=== PATIENT | female | born 1985 | race African-American/Black ===

== ENCOUNTER 2016-03-03 15:01 | Inpatient (IN) | payer OTHER ==
[2016-03-03 16:42] VITALS: BMI 40.1
--- NOTE | 2016-03-03 17:42 | HP ---
CIWA Score - CIWA Score Nausea/Vomitin Muscle Tremors: 3 Anxiety: 3 Agitation: 3 Paroxysmal Sweats: 2 Orientation: 0-Oriented Tacttile Disturbances: 2-Mild Itch/Numbness/Burn Auditory Disturbances: 2-Mild Harshness/Frighten Visual Disturbances: 2-Mild Sensitivity Headache: 2-Mild CIWA-Ar Total Score: 22 Admission ROS BHS - HPI Chief Complaint: I NEED HELP TO STOP DRINKING ALCOHOL ND COCAINE Allergies/Adverse Reactions: Allergies Allergy/AdvReac Type Severity Reaction Status Date / Time diphenhydramine HCl Allergy Hives Verified 03/03/16 18:01 [From Benadryl] History of Present Illness: THIS 30 YEARS OLD FEMALE WITH ALCOHOL AND COCAINE DEPENDENCE,WITHDRAWAL SYMPTOM, LAST DETOX 01/26/16 TO 01/28/16 ASTHMA ALLERGIC TO BENADRYL RASH STATED TAKING BENADRYL WITHOUT PROBLEM NICOTINE DEPENDENCE NO SIGNIFICANT PERIOD OF SOBRIETY Exam Limitations: No Limitations - Ebola screening Have you traveled outside of the country in the last 21 days: No (N) Have you had contact with anyone from an Ebola affected area: No Have you been sick,other than usual withdrawal symptoms: No Do you have a fever: No - Review of Systems Constitutional: Loss of Appetite, Malaise, Night Sweats, Changes in sleep, Weakness EENT: reports: Nose Congestion Respiratory: reports: No Symptoms reported Cardiac: reports: No Symptoms Reported GI: reports: Diarrhea, Nausea, Vomiting, Abdominal cramping : reports: No Symptoms Reported Musculoskeletal: reports: Back Pain, Muscle Pain Integumentary: reports: Dryness Neuro: reports: Headache, Tremors Endocrine: reports: No Symptoms Reported Hematology: reports: No Symptoms Reported Psychiatric: reports: Anxious, Depressed, other (BIPOLAR DISORDER PTSD) Patient History - Patient Medical History Hx Anemia: No Hx Asthma: Yes (ON ALBUTEROL) Hx Chronic Obstructive Pulmonary Disease (COPD): No Hx Cancer: No Hx Cardiac Disorders: No Hx Hypertension: No Hx Hypercholesterolemia: No Hx Pacemaker: No HX Cerebrovascular Accident: No Hx Seizures: No Hx Dementia: No Hx Diabetes: No Hx Gastrointestinal Disorders: No Hx Liver Disease: No Hx Genitourinary Disorders: No Hx Sexually Transmitted Disorders: No Hx Renal Disease (ESRD): No Hx Thyroid Disease: No Hx Human Immunodeficiency Virus (HIV): No (LAST 10/15 NEGATIVE) Hx Hepatitis C: No Hx Depression: Yes (hospitalized in december 2015 bx [place]) Hx Suicide Attempt: Yes (last time 15 years ago OVERDOSE) Hx Schizophrenia: No Other Medical History: NO SUICIDAL,NO HOMICIDAL - Patient Surgical History Past Surgical History: No - PPD History Previous Implant?: Yes Date: 01/28/16 Results: NO READING PPD to be Administered?: Yes - Reproductive History Patient is a Female of Child Bearing Age (11 -55 yrs old): Yes Last Menstrual Period: 03/01/16 Patient : No - Smoking Cessation Smoking history: Current every day smoker Have you smoked in the past 12 months: Yes Aproximately how many cigarettes per day: 20 Hx Chewing Tobacco Use: No Initiated information on smoking cessation: Yes 'Breaking Loose' booklet given: 03/03/16 - Substance & Tx. History Hx Alcohol Use: Yes Hx Substance Use: Yes Substance Use Type: Alcohol, Cocaine Hx Substance Use Treatment: Yes ([facility] 01/26/16 TO 01/28/16) - Substances Abused Alcohol Route: Oral Frequency: Daily Amount used: 4PINTS OF YULIYA/12 OF 12 OZS OF BEER Age of first use: 14 Date of Last Use: 03/02/16 Cocaine Route: Inhalation Frequency: 1-2 times per week Amount used: 20$ Age of first use: 21 Date of Last Use: 03/02/16 Family Disease History - Family Disease History Family Disease History: Diabetes: Grandparent (), Father (hx etoh), Mother, Heart Disease: Mother, CA: Grandparent Admission Physical Exam BHS - Vital Signs Vital Signs: Vital Signs - 24 hr 03/03/16 16:40 Temperature 98.2 F Pulse Rate 72 Respiratory 20 Rate Blood Pressure 104/73 - Physical General Appearance: Yes: Moderate Distress, Irritable, Sweating, Anxious HEENTM: Yes: Nasal Congestion Respiratory: Yes: Lungs Clear Neck: Yes: Within Normal Limits Breast: Yes: Within Normal Limits Cardiology: Yes: Within Normal Limits, Regular Rhythm, Regular Rate, S1, S2 Abdominal: Yes: Normal Bowel Sounds, Non Tender, Soft Genitourinary: Yes: Within Normal Limits Back: Yes: Muscle Spasm Musculoskeletal: Yes: Back pain, Muscle Pain Extremities: Yes: Tremors Neurological: Yes: humanities division chair II-XII NML intact, Fully Oriented, Alert, Motor Strength 5/5 Integumentary: Yes: Dry Lymphatic: Yes: Within Normal Limits - Diagnostic (1) Alcohol dependence with uncomplicated withdrawal Current Visit: Yes Status: Acute (2) Cocaine dependence Current Visit: Yes Status: Acute Qualifiers: Substance use status: uncomplicated Qualified Code(s): F14.20 - Cocaine dependence, uncomplicated (3) Nicotine dependence Current Visit: Yes Status: Acute Qualifiers: Nicotine product type: cigarettes Substance use status: uncomplicated Qualified Code(s): F17.210 - Nicotine dependence, cigarettes, uncomplicated (4) Bipolar disorder Current Visit: Yes Status: Chronic Comment: By history (self-report). (5) Insomnia Current Visit: Yes Status: Chronic (6) PTSD (post-traumatic stress disorder) Current Visit: Yes Status: Acute Cleared for Admission S - Detox or Rehab [facility] Level of Care: Medically Managed Detox Regimen/Protocol: Librium S Breath Alcohol Content Breath Alcohol Content: 0 Urine Drug Screen - Results Drug Screen Negative: No Urine Drug Screen Results: KOSTA-Cocaine
[2016-03-03] MEDS ORDERED: MAGNESIUM CITRATE 300 ML BOTTLE PO PRN (17:53)
[2016-03-03] MEDS ORDERED: MENTHOL/PHENOL 1 EACH UD MM PRN (17:53)
[2016-03-03] MEDS ORDERED: ACETAMINOPHEN 325 MG TABLET (FP) PO PRN (17:53)
[2016-03-03] MEDS ORDERED: hydrOXYzine PAMOATE 25 MG CAPSULE (FP) PO PRN (17:53)
[2016-03-03] MEDS ORDERED: P-EPHED 60MG/TRIPROLIDI 2.5MG TABLET PO PRN (17:53)
[2016-03-03] MEDS ORDERED: MAG HYDROX/AL HYDROX/SIMETH 30 ML UNIT-DOSE CUP PO PRN (17:53)
[2016-03-03] MEDS ORDERED: guaiFENesin/D-METHORPHAN HB 10 ML UNIT-DOSE CUPS PO PRN (17:53)
[2016-03-03] MEDS ORDERED: IBUPROFEN 400 MG TABLET (FP) PO PRN (17:53)
[2016-03-03] MEDS ORDERED: LOPERAMIDE HCL 2 MG CAPSULE PO PRN (17:53)
[2016-03-03] MEDS ORDERED: chlordiazePOXIDE HCL 25 MG CAPSULE PO PRN (17:53)
[2016-03-03] MEDS ORDERED: MAGNESIUM HYDROX 2400MG/30ML ORAL SUSPENSION 30 ML CUP PO PRN (17:53)
[2016-03-03] MEDS: NICOTINE 21 MG/24 HOURS TOPICAL PATCH TD SCH (18:28)
[2016-03-03] MEDS ORDERED: chlordiazePOXIDE HCL 25 MG CAPSULE PO ONE (18:30)
[2016-03-03] MEDS: hydrOXYzine PAMOATE 50 MG CAPSULE (FP) PO SCH (22:24)
[2016-03-03] MEDS: THIAMINE HCL 100 MG TABLET (FP) PO SCH (22:24)
[2016-03-03] MEDS: chlordiazePOXIDE HCL 25 MG CAPSULE PO SCH (22:24)
[2016-03-04] MEDS: chlordiazePOXIDE HCL 25 MG CAPSULE PO SCH ×4 (06:27→22:19)
--- NOTE | 2016-03-04 10:06 | CONSULT ---
[facility] Psychiatric Consult - Data Date of interview: 03/04/16 Admission source: [facility] Identifying data: Readmission to [facility] for this 30 y/o AA female seeking detox treatment on for alcohol and cocaine (crack) dependence.Patient is single without children,undomiciled,unemployed and reportedly deprived of any source of income.. Substance Abuse History: - Smoking Cessation. Smoking history: Former smoker. Have you smoked in the past 12 months: No. Aproximately how many cigarettes per day: 0. Hx Chewing Tobacco Use: No. Initiated information on smoking cessation: Yes. 'Breaking Loose' booklet given: 03/03/16. - Substance & Tx. History. Hx Alcohol Use: Yes. Hx Substance Use: No. Substance Use Type: Alcohol. Hx Substance Use Treatment: Yes ([facility] 03/20/15 TO 03/25/15). - Substances Abused. Alcohol. Route: Oral. Frequency: Daily. Amount used: 1 1/2 pint Vodka. Age of first use: 50. Date of Last Use: 03/03/16 Medical History: Patient denies medical problems. Psychiatric History: History of multiple psychiatric hospitalizations.Onset of mental illness :age [age].Patient is well known to [facility] due to numerous psychiatric admissions at that location.Diagnosed with Bipolar Disorder.OPD care is now delivered at [facility].Ms Zavala reports being on seroquel 200 mg/hs + gabapentin 300 mg/600 mg (am/hs respectively).Patient reports chronic insomnia.No history of suicide attempts. Physical/Sexual Abuse/Trauma History: No reported history of sexual abuse. Additional Comment: Urine Drug Screen Results: KOSTA-Cocaine.Noted. Mental Status Exam - Mental Status Exam Alert and Oriented to: Time, Place, Person Cognitive Function: Good Patient Appearance: Well Groomed (obese) Mood: Angry, Hostile, Irritable Affect: Inappropriate, Mood Congruent Patient Behavior: Uncooperative, Guarded Speech Pattern: Clear Voice Loudness: Normal Thought Process: Goal Oriented Thought Disorder: Bizarre Hallucinations: Denies Suicidal Ideation: Denies Homicidal Ideation: Denies Insight/Judgement: Poor Sleep: Poorly, Difficulty falling asleep Appetite: Good Muscle strength/Tone: Normal Gait/Station: Normal Psychiatric Findings - Problem List ([place] 1, 2,3) (1) Alcohol dependence with uncomplicated withdrawal Current Visit: Yes Status: Acute (2) Cocaine dependence Current Visit: Yes Status: Acute Qualifiers: Substance use status: uncomplicated Qualified Code(s): F14.20 - Cocaine dependence, uncomplicated (3) Nicotine dependence Current Visit: Yes Status: Acute Qualifiers: Nicotine product type: cigarettes Substance use status: uncomplicated Qualified Code(s): F17.210 - Nicotine dependence, cigarettes, uncomplicated (4) Bipolar disorder Current Visit: Yes Status: Chronic Comment: By history (self-report). (5) Insomnia Current Visit: Yes Status: Chronic - Initial Treatment Plan Initial Treatment Plan: Psychoeducation.Detoxification.Medications :gabapentin 300 mg po am + 600 mg po hs and seroquel 200 mg po hs at own request.Side effects/benefits discussed with patient.She agree with this plan.Observation.
[2016-03-04] MEDS: PRENATAL VITAMINS W/ FOLIC ACID TABLET (FP) PO SCH (10:26)
[2016-03-04] MEDS: NICOTINE 21 MG/24 HOURS TOPICAL PATCH TD SCH (10:27)
[2016-03-04 11:02] LABS: MCHC 32.9 g/dl (32.0-36.0); MEAN PLT VOLUME 9.1 fl (7.5-11.1); PLATELET COUNT 315 K/MM3 (134-434); RDW 14.9 % (11.6-15.6); WHITE BLOOD COUNT 8.3 K/mm3 (4.0-10.0)
--- NOTE | 2016-03-04 11:10 | PN ---
S CIWA - CIWA Score Nausea/Vomitin Muscle Tremors: 2 Anxiety: 3 Agitation: 4-Moderately Restless Paroxysmal Sweats: 3 Orientation: 0-Oriented Tacttile Disturbances: 1-Very Mild Itch/Numbness Auditory Disturbances: 0-None Visual Disturbances: 0-None Headache: 0-None Present CIWA-Ar Total Score: 15 BHS Progress Note (SOAP) Subjective: INTERRUPTED SLEEP, IRRITABILITY, Objective: 03/04/16 11:08 Vital Signs Temperature 97.9 F 03/04/16 10:28 Pulse Rate 75 03/04/16 10:28 Respiratory Rate 20 03/04/16 10:28 Blood Pressure 110/68 03/04/16 10:28 O2 Sat by Pulse Oximetry (%) Laboratory Tests 03/04/16 06:30 WBC 8.3 RBC 4.43 Hgb 12.8 Hct 39.0 MCV 88.0 MCHC 32.9 RDW 14.9 Plt Count 315 MPV 9.1 PENDING LABS PT AOX3 ANGRY, RESISTANT TO HAVING VS DONE Assessment: 03/04/16 11:09 WITHDRAWL SX;S Plan: CONT. DETOX INCREASE FLUIDS ENCOUARGE PT TO PARTICIPATE IN [facility] RULE S
[2016-03-04 11:29] LABS: ALK PHOS 70 U/L (45-117); ANION GAP 5 (8-16); BILIRUBIN,TOTAL 0.2 mg/dL (0.2-1.0); CALCIUM 8.8 mg/dL (8.5-10.1); CO2 30 mmol/L (21-32); CREATININE 0.8 mg/dL (0.55-1.02); GLUCOSE,RANDOM 86 mg/dL (74-106); SGOT/AST 17 U/L (15-37); SGPT/ALT 25 U/L (12-78)
[2016-03-04] MEDS: GABAPENTIN 300 MG CAPSULE (FP) PO SCH ×2 (11:55→22:25)
[2016-03-04] MEDS: THIAMINE HCL 100 MG TABLET (FP) PO SCH (22:20)
[2016-03-04] MEDS: QUEtiapine FUMARATE 200 MG TABLET PO SCH (22:20)
[2016-03-04] MEDS: hydrOXYzine PAMOATE 50 MG CAPSULE (FP) PO SCH (22:20)
[2016-03-05] MEDS: chlordiazePOXIDE HCL 25 MG CAPSULE PO SCH ×3 (05:50→17:30)
[2016-03-05] MEDS: PRENATAL VITAMINS W/ FOLIC ACID TABLET (FP) PO SCH (10:31)
[2016-03-05] MEDS: GABAPENTIN 300 MG CAPSULE (FP) PO SCH ×2 (10:32→22:07)
[2016-03-05] MEDS: NICOTINE 21 MG/24 HOURS TOPICAL PATCH TD SCH (10:32)
--- NOTE | 2016-03-05 10:45 | PN ---
[facility] CIWA - CIWA Score Nausea/Vomitin-No Nausea/No Vomiting Muscle Tremors: 3 Anxiety: 4-Mod. Anxious/Guarded Agitation: 3 Paroxysmal Sweats: 1-Minimal Palms Moist Orientation: 0-Oriented Tacttile Disturbances: 0-None Auditory Disturbances: 0-None Visual Disturbances: 0-None Headache: 0-None Present CIWA-Ar Total Score: 11 BHS Progress Note (SOAP) Subjective: irritable agitation Objective: 03/05/16 10:49 Vital Signs Temperature 98.4 F 03/05/16 06:28 Pulse Rate 97 H 03/05/16 06:28 Respiratory Rate 20 03/05/16 06:28 Blood Pressure 105/62 03/05/16 06:28 O2 Sat by Pulse Oximetry (%) Laboratory Tests 03/04/16 03/04/16 03/04/16 06:30 06:30 06:30 WBC 8.3 RBC 4.43 Hgb 12.8 Hct 39.0 MCV 88.0 MCHC 32.9 RDW 14.9 Plt Count 315 MPV 9.1 Sodium 142 Potassium 4.2 Chloride 107 Carbon Dioxide 30 Anion Gap 5 L BUN 12 Creatinine 0.8 Creat Clearance w eGFR > 60 Random Glucose 86 D Calcium 8.8 Total Bilirubin 0.2 AST 17 D ALT 25 D Alkaline Phosphatase 70 Total Protein 6.0 L Albumin 3.0 L RPR Titer Nonreactive awake/alert ambulating very angry "I don't want to be here for detox I need to be left alone." Assessment: 03/05/16 10:50 mild withdrawal sx Plan: pt was encouraged to abide by unit rules. MD and counselor was involved in speaking with pt to advise her of controlling her behaviour and follow unit rules. pt has been very abrasive, unruly, uncooperative, insulting to staff. pt was told this behaviour need to stop. pt states she will change. will continue to monitor. d/c in am
[2016-03-05] MEDS: QUEtiapine FUMARATE 200 MG TABLET PO SCH (22:07)
[2016-03-05] MEDS: hydrOXYzine PAMOATE 50 MG CAPSULE (FP) PO SCH (22:07)
[2016-03-05] MEDS: chlordiazePOXIDE 5 MG CAPSULE PO SCH (22:08)
[2016-03-05] MEDS: THIAMINE HCL 100 MG TABLET (FP) PO SCH (22:11)
[2016-03-06] MEDS: chlordiazePOXIDE 5 MG CAPSULE PO SCH (05:33)
[2016-03-06] MEDS: GABAPENTIN 300 MG CAPSULE (FP) PO SCH (09:05)
[2016-03-06] MEDS: PRENATAL VITAMINS W/ FOLIC ACID TABLET (FP) PO SCH (09:05)
--- NOTE | 2016-03-06 09:18 | DS ---
[facility] Detox Discharge Summary Admission Date: 03/03/16 Discharge Date: 03/06/16 - History Present History: Alcohol Dependence, Cocaine Dependence Additional Comments: pt has been disruptive x 3 days . She has cursed out the entire staff on 6n including pyschiatrist and POLICE CRIME SCENE TECHNICIAN. The pt does not follow instructions or unit policies . Refused meds and is not changing her behavior despite multiple attempts by multiple staff members who have spoken to her . Security called and pt escorted off unit. - Physical Exam Results Vital Signs: Vital Signs Temperature 97.3 F L 03/06/16 06:53 Pulse Rate 86 03/06/16 06:53 Respiratory Rate 18 03/06/16 06:53 Blood Pressure 112/70 03/06/16 06:53 O2 Sat by Pulse Oximetry (%) - Treatment Hospital Course: Detox Protocol Followed Patient has Accepted a Rehab Referral to: [place], [place] - Medication Discharge Medications: Ambulatory Orders Gabapentin [Neurontin] 300 mg PO BID 01/26/16 Hydroxyzine Pamoate [Vistaril -] 100 mg PO HS 01/26/16 Gabapentin [Neurontin -] 300 mg PO TID #90 capsule 03/05/16 Quetiapine Fumarate [Seroquel -] 200 mg PO HS #30 tab 03/05/16 - Diagnosis (1) Alcohol dependence with uncomplicated withdrawal Current Visit: Yes Status: Chronic (2) Cocaine dependence Current Visit: Yes Status: Chronic Qualifiers: Substance use status: uncomplicated Qualified Code(s): F14.20 - Cocaine dependence, uncomplicated (3) Nicotine dependence Current Visit: Yes Status: Chronic Qualifiers: Nicotine product type: cigarettes Substance use status: uncomplicated Qualified Code(s): F17.210 - Nicotine dependence, cigarettes, uncomplicated (4) PTSD (post-traumatic stress disorder) Current Visit: Yes Status: Chronic (5) Bipolar disorder Current Visit: Yes Status: Chronic Qualifiers: Current episode severity: unspecified - AMA Did Patient Leave Against Medical Advice: No (but administratively d/c'ed )
[2016-03-06 09:59] VITALS: BP 130/62; PULSE 97; TEMP 95.7
[2016-03-06] MEDS ORDERED: chlordiazePOXIDE HCL 10 MG CAPSULE PO SCH (23:00)
== END 2016-03-06 09:25 | disposition home or self-care (01) | DRG 774 ==
LOC: YASAS 15:01 → Y6N 17:52
PROVIDERS: ADMIT Internal Medicine; ATTEND Internal Medicine
PROC: HZ2ZZZZ Detoxification Services for Substance Abuse Treatment (ICD-10-PCS; principal; 2016-03-03)
DX: F10.230 Alcohol dependence with withdrawal, uncomplicated (principal); F14.20 Cocaine dependence, uncomplicated; F17.210 Nicotine dependence, cigarettes, uncomplicated; F43.10 Post-traumatic stress disorder, unspecified; F31.9 Bipolar disorder, unspecified; J45.909 Unspecified asthma, uncomplicated; G47.00 Insomnia, unspecified; Z91.5 Personal history of self-harm
CPT/HCPCS: 36415; 80053; 85027; 86593; 93005; 93010

== ENCOUNTER 2016-11-13 15:06 | Inpatient (IN) | payer OTHER ==
[2016-11-13 17:08] VITALS: BMI 43.2
--- NOTE | 2016-11-13 19:29 | HP ---
CIWA Score - CIWA Score Nausea/Vomitin-Mild Nausea/No Vomiting Muscle Tremors: 4-Moderate,w/Arms Extend Anxiety: 4-Mod. Anxious/Guarded Agitation: 4-Moderately Restless Paroxysmal Sweats: 1-Minimal Palms Moist Orientation: 0-Oriented Tacttile Disturbances: 0-None Auditory Disturbances: 0-None Visual Disturbances: 0-None Headache: 0-None Present CIWA-Ar Total Score: 14 Admission ROS BHS - HPI Chief Complaint: WITHDRAWAL SX Allergies/Adverse Reactions: Allergies Allergy/AdvReac Type Severity Reaction Status Date / Time diphenhydramine HCl Allergy Hives Verified 11/13/16 18:44 [From Benadryl] History of Present Illness: 31 YEARS OLD FEMALE WITH LONG HISTORY OF ALCOHOL COCAINE NICOTINE DEPENDENCE HAS ASTHMA ANXIETY IS ADMITTED TO DETOX Exam Limitations: No Limitations - Ebola screening Have you traveled outside of the country in the last 21 days: No Have you had contact with anyone from an Ebola affected area: No Have you been sick,other than usual withdrawal symptoms: No Do you have a fever: No - Review of Systems Constitutional: Changes in sleep, Weight Stable EENT: reports: No Symptoms Reported Respiratory: reports: No Symptoms reported Cardiac: reports: No Symptoms Reported GI: reports: Diarrhea, Nausea, Poor Fluid Intake, Abdominal cramping : reports: No Symptoms Reported Musculoskeletal: reports: Back Pain (X 3 YEARS) Integumentary: reports: No Symptoms Reported Neuro: reports: Tremors Endocrine: reports: No Symptoms Reported Hematology: reports: No Symptoms Reported Psychiatric: reports: Judgement Intact, Orientated x3, Anxious, Depressed Other Systems: Reviewed and Negative Patient History - Patient Medical History Hx Anemia: No Hx Asthma: Yes (ON ALBUTEROL) Hx Chronic Obstructive Pulmonary Disease (COPD): No Hx Cancer: No Hx Cardiac Disorders: No Hx Congestive Heart Failure: No Hx Hypertension: No Hx Hypercholesterolemia: No Hx Pacemaker: No HX Cerebrovascular Accident: No Hx Seizures: No Hx Dementia: No Hx Diabetes: No Hx Gastrointestinal Disorders: No Hx Liver Disease: No Hx Genitourinary Disorders: No Hx Sexually Transmitted Disorders: No Hx Renal Disease (ESRD): No Hx Thyroid Disease: No Hx Human Immunodeficiency Virus (HIV): No (LAST 10/15 NEGATIVE) Hx Hepatitis C: No Hx Depression: Yes (hospitalized in december 2015 bx [place]) Hx Suicide Attempt: Yes (15 years OLD OVERDOSE) Hx Bipolar Disorder: No Hx Schizophrenia: No - Patient Surgical History Past Surgical History: No Hx Neurologic Surgery: No Hx Cataract Extraction: No Hx Cardiac Surgery: No Hx Lung Surgery: No Hx Breast Surgery: No Hx Breast Biopsy: No Hx Abdominal Surgery: No Hx Appendectomy: No Hx Cholecystectomy: No Hx Genitourinary Surgery: No Hx Orthopedic Surgery: No - PPD History Previous Implant?: Yes Documented Results: Negative w/proof Implanted On Prior [facility] Admission?: Yes Date: 03/05/16 Results: 0 PPD to be Administered?: No - Reproductive History Patient is a Female of Child Bearing Age (11 -55 yrs old): Yes Last Menstrual Period: 10/27/16 Patient : No - Smoking Cessation Smoking history: Current every day smoker Have you smoked in the past 12 months: Yes Aproximately how many cigarettes per day: 20 Cigars Per Day: 0 Hx Chewing Tobacco Use: No Initiated information on smoking cessation: Yes 'Breaking Loose' booklet given: 11/13/16 - Substance & Tx. History Hx Alcohol Use: Yes Hx Substance Use: Yes Substance Use Type: Alcohol, Cocaine Hx Substance Use Treatment: Yes (03/03-03/06/16 [facility] - Substances Abused Alcohol Route: Oral Frequency: Daily Amount used: LIQUOR- 4 PINTS, BEER- 2 SIX PACKS Age of first use: 14 Date of Last Use: 11/13/16 Cocaine Route: Smoking Frequency: Daily Amount used: 20 BAGS Age of first use: 21 Date of Last Use: 11/12/16 Family Disease History - Family Disease History Family Disease History: Diabetes: Grandparent (), Father (hx etoh), Mother, Heart Disease: Mother, [place]: Grandparent Admission Physical Exam S - Vital Signs Vital Signs: Vital Signs - 24 hr 11/13/16 17:03 Temperature 98.6 F Pulse Rate 87 Respiratory 18 Rate Blood Pressure 126/70 - Physical General Appearance: Yes: Appropriately Dressed, Mild Distress, Obese, Tremorous , Irritable, Sweating, Anxious HEENTM: Yes: Hearing grossly Normal, Normal ENT Inspection, Normocephalic, Normal Voice Respiratory: Yes: Chest Non-Tender, Lungs Clear, Normal Breath Sounds, No Respiratory Distress, No Accessory Muscle Use Neck: Yes: Supple, Trachea in good position Breast: Yes: Breasts Symetrical Cardiology: Yes: Regular Rhythm, Regular Rate, S1, S2 Abdominal: Yes: Non Tender, Soft, Increased Bowel Sounds Genitourinary: Yes: Within Normal Limits Back: Yes: Normal Inspection Musculoskeletal: Yes: full range of Motion, Gait Steady, Back pain, Muscle Pain Extremities: Yes: Normal Inspection, Normal Range of Motion, Non-Tender, Tremors Neurological: Yes: Fully Oriented, Alert, Motor Strength 5/5, Normal Response, Depressed Affect Integumentary: Yes: Warm Lymphatic: Yes: Within Normal Limits - Diagnostic (1) Alcohol dependence with uncomplicated withdrawal Current Visit: Yes Status: Acute (2) Nicotine dependence Current Visit: Yes Status: Acute Qualifiers: Nicotine product type: cigarettes Substance use status: in withdrawal Qualified Code(s): F17.213 - Nicotine dependence, cigarettes, with withdrawal (3) Cocaine dependence, uncomplicated Current Visit: Yes Status: Chronic (4) Cannabis dependence, uncomplicated Current Visit: Yes Status: Chronic (5) Asthma Current Visit: Yes Status: Chronic Qualifiers: Asthma severity: mild intermittent Asthma complication type: with status asthmaticus Qualified Code(s): J45.22 - Mild intermittent asthma with status asthmaticus (6) Anxiety Current Visit: Yes Status: Suspected Cleared for Admission [facility] - Detox or Rehab [facility] Level of Care: Medically Managed Detox Regimen/Protocol: Librium [facility] Breath Alcohol Content Breath Alcohol Content: 0 Urine Pregancy Test - Result Urine Test Results: Negative- NO Line Present Urine Drug Screen - Results Drug Screen Negative: No Urine Drug Screen Results: KOSTA-Cocaine
[2016-11-13] MEDS ORDERED: NICOTINE 21 MG/24 HOURS TOPICAL PATCH TD PRN (19:38)
[2016-11-13] MEDS ORDERED: IBUPROFEN 400 MG TABLET (FP) PO PRN (19:38)
[2016-11-13] MEDS ORDERED: MAGNESIUM CITRATE 300 ML BOTTLE PO PRN (19:38)
[2016-11-13] MEDS ORDERED: MAGNESIUM HYDROX 2400MG/30ML ORAL SUSPENSION 30 ML CUP PO PRN (19:38)
[2016-11-13] MEDS ORDERED: MENTHOL/PHENOL 1 EACH UD MM PRN (19:38)
[2016-11-13] MEDS ORDERED: MAG HYDROX/AL HYDROX/SIMETH 30 ML UNIT-DOSE CUP PO PRN (19:38)
[2016-11-13] MEDS ORDERED: guaiFENesin/D-METHORPHAN HB 10 ML UNIT-DOSE CUPS PO PRN (19:38)
[2016-11-13] MEDS ORDERED: diphenhydrAMINE HCL 50 MG CAPSULE PO PRN (19:38)
[2016-11-13] MEDS ORDERED: P-EPHED 60MG/TRIPROLIDI 2.5MG TABLET PO PRN (19:38)
[2016-11-13] MEDS ORDERED: LOPERAMIDE HCL 2 MG CAPSULE PO PRN (19:38)
[2016-11-13] MEDS ORDERED: chlordiazePOXIDE HCL 25 MG CAPSULE PO PRN (19:38)
[2016-11-13] MEDS ORDERED: NICOTINE POLACRILEX 4 MG GUM BUC PRN (19:38)
[2016-11-13] MEDS ORDERED: ACETAMINOPHEN 325 MG TABLET (FP) PO PRN (19:38)
[2016-11-13] MEDS ORDERED: ALBUTEROL SO4 6.7 GM HFA INHALER IH PRN (19:41)
--- NOTE | 2016-11-13 19:46 | HP ---
CIWA Score - CIWA Score Nausea/Vomitin-Mild Nausea/No Vomiting Muscle Tremors: 4-Moderate,w/Arms Extend Anxiety: 4-Mod. Anxious/Guarded Agitation: 4-Moderately Restless Paroxysmal Sweats: 1-Minimal Palms Moist Orientation: 0-Oriented Tacttile Disturbances: 0-None Auditory Disturbances: 0-None Visual Disturbances: 0-None Headache: 0-None Present CIWA-Ar Total Score: 14 Admission ROS S - HPI Allergies/Adverse Reactions: Allergies Allergy/AdvReac Type Severity Reaction Status Date / Time diphenhydramine HCl Allergy Hives Verified 11/13/16 18:44 [From BenadDesigual] - Ebola screening Have you traveled outside of the country in the last 21 days: No Have you had contact with anyone from an Ebola affected area: No Have you been sick,other than usual withdrawal symptoms: No Do you have a fever: No Patient History - Patient Medical History Hx Anemia: No Hx Asthma: Yes (ON ALBUTEROL) Hx Chronic Obstructive Pulmonary Disease (COPD): No Hx Cancer: No Hx Cardiac Disorders: No Hx Congestive Heart Failure: No Hx Hypertension: No Hx Hypercholesterolemia: No Hx Pacemaker: No HX Cerebrovascular Accident: No Hx Seizures: No Hx Dementia: No Hx Diabetes: No Hx Gastrointestinal Disorders: No Hx Liver Disease: No Hx Genitourinary Disorders: No Hx Sexually Transmitted Disorders: No Hx Renal Disease (ESRD): No Hx Thyroid Disease: No Hx Human Immunodeficiency Virus (HIV): No (LAST 10/15 NEGATIVE) Hx Hepatitis C: No Hx Depression: Yes (hospitalized in december 2015 [facility]) Hx Suicide Attempt: Yes (15 years OLD OVERDOSE) Hx Bipolar Disorder: No Hx Schizophrenia: No - Patient Surgical History Past Surgical History: No Hx Neurologic Surgery: No Hx Cataract Extraction: No Hx Cardiac Surgery: No Hx Lung Surgery: No Hx Breast Surgery: No Hx Breast Biopsy: No Hx Abdominal Surgery: No Hx Appendectomy: No Hx Cholecystectomy: No Hx Genitourinary Surgery: No Hx Section: No Hx Orthopedic Surgery: No Anesthesia Reaction: No - PPD History Previous Implant?: Yes Documented Results: Negative w/proof Implanted On Prior R Admission?: Yes Date: 03/05/16 Results: 0 - Reproductive History Last Menstrual Period: 10/27/16 Patient : No - Smoking Cessation Smoking history: Current every day smoker Have you smoked in the past 12 months: Yes Aproximately how many cigarettes per day: 20 Cigars Per Day: 0 Hx Chewing Tobacco Use: No Initiated information on smoking cessation: Yes 'Breaking Loose' booklet given: 11/13/16 - Substances Abused Alcohol Route: Oral Frequency: Daily Amount used: LIQUOR- 4 PINTS, BEER- 2 SIX PACKS Age of first use: 14 Date of Last Use: 11/13/16 Cocaine Route: Smoking Frequency: Daily Amount used: 20 BAGS Age of first use: 21 Date of Last Use: 11/12/16 Family Disease History - Family Disease History Family Disease History: Diabetes: Grandparent (), Father (hx etoh), Mother, Heart Disease: Mother, CA: Grandparent Admission Physical Exam S - Vital Signs Vital Signs: Vital Signs - 24 hr 11/13/16 17:03 Temperature 98.6 F Pulse Rate 87 Respiratory 18 Rate Blood Pressure 126/70 - Physical General Appearance: Yes: Appropriately Dressed, Mild Distress, Obese, Tremorous , Irritable, Sweating, Anxious HEENTM: Yes: Hearing grossly Normal, Normal ENT Inspection, Normocephalic, Normal Voice Respiratory: Yes: Chest Non-Tender, Lungs Clear, Normal Breath Sounds, No Respiratory Distress, No Accessory Muscle Use Neck: Yes: Supple, Trachea in good position Breast: Yes: Breasts Symetrical Cardiology: Yes: Regular Rhythm, Regular Rate, S1, S2 Abdominal: Yes: Non Tender, Soft, Increased Bowel Sounds Genitourinary: Yes: Within Normal Limits Back: Yes: Normal Inspection Musculoskeletal: Yes: full range of Motion, Gait Steady, Back pain Extremities: Yes: Normal Inspection, Normal Range of Motion, Non-Tender, Tremors Neurological: Yes: Fully Oriented, Alert, Motor Strength 5/5, Normal Response, Depressed Affect Integumentary: Yes: Warm Lymphatic: Yes: Within Normal Limits - Diagnostic (1) Alcohol dependence with uncomplicated withdrawal Current Visit: Yes Status: Acute (2) Nicotine dependence Current Visit: Yes Status: Acute Qualifiers: Nicotine product type: cigarettes Substance use status: in withdrawal Qualified Code(s): F17.213 - Nicotine dependence, cigarettes, with withdrawal (3) Cocaine dependence, uncomplicated Current Visit: Yes Status: Chronic (4) Cannabis dependence, uncomplicated Current Visit: Yes Status: Chronic (5) Asthma Current Visit: Yes Status: Chronic Qualifiers: Asthma severity: mild intermittent Asthma complication type: with status asthmaticus Qualified Code(s): J45.22 - Mild intermittent asthma with status asthmaticus (6) Anxiety Current Visit: Yes Status: Suspected BHS Breath Alcohol Content Breath Alcohol Content: 0 Urine Pregancy Test - Result Urine Test Results: Negative- NO Line Present Urine Drug Screen - Results Drug Screen Negative: No Urine Drug Screen Results: KOSTA-Cocaine
[2016-11-13] MEDS: THIAMINE HCL 100 MG TABLET (FP) PO SCH (21:04)
[2016-11-13] MEDS: GABAPENTIN 400 MG CAPSULE (FP) PO SCH (21:04)
[2016-11-13] MEDS: hydrOXYzine PAMOATE 50 MG CAPSULE (FP) PO PRN (21:08)
[2016-11-13] MEDS: chlordiazePOXIDE HCL 25 MG CAPSULE PO SCH (22:00)
[2016-11-14 00:47] LABS: URINE APPEARANCE SLCLOUDY; URINE BILIRUBIN NEGATIVE (NEGATIVE); URINE BLOOD NEGATIVE (NEGATIVE); URINE COLOR YELLOW; URINE GLUCOSE (UA) NEGATIVE (NEGATIVE); URINE KETONE TRACE (NEGATIVE); URINE LEUK ESTERASE NEGATIVE (NEGATIVE); URINE NITRITE NEGATIVE (NEGATIVE); URINE PROTEIN NEGATIVE (NEGATIVE); URINE UROBILINOGEN NEGATIVE mg/dL (0.2-1.0)
[2016-11-14] MEDS: chlordiazePOXIDE HCL 25 MG CAPSULE PO SCH ×4 (06:47→22:55)
[2016-11-14] MEDS: GABAPENTIN 400 MG CAPSULE (FP) PO SCH ×3 (06:50→22:55)
--- NOTE | 2016-11-14 09:41 | PN ---
S CIWA - CIWA Score Nausea/Vomitin Muscle Tremors: 4-Moderate,w/Arms Extend Anxiety: 4-Mod. Anxious/Guarded Agitation: 4-Moderately Restless Paroxysmal Sweats: 3 Orientation: 0-Oriented Tacttile Disturbances: 1-Very Mild Itch/Numbness Auditory Disturbances: 0-None Visual Disturbances: 0-None Headache: 1-Very Mild CIWA-Ar Total Score: 20 BHS Progress Note (SOAP) Subjective: nausea, sweats, interrupted sleep, anxiety, tremors Objective: 11/14/16 09:40 Vital Signs - 24 hr 11/13/16 11/13/16 11/14/16 17:03 21:57 00:30 Temperature 98.6 F 97.3 F L Pulse Rate 87 81 Respiratory 18 18 18 Rate Blood Pressure 126/70 120/83 11/14/16 11/14/16 06:00 09:30 Temperature 97.9 F 96.1 F L Pulse Rate 79 85 Respiratory 18 18 Rate Blood Pressure 113/63 113/65 Laboratory Tests 11/13/16 21:36 Urine Color Yellow Urine Appearance Slcloudy Urine pH 6.0 Urine Protein Negative Urine Glucose (UA) Negative Urine Ketones Trace H Urine Blood Negative Urine Nitrite Negative Urine Bilirubin Negative Urine Urobilinogen Negative labs pending Assessment: 11/14/16 09:40 withdrawal sx Plan: cont detox, fluids, encourage ambulation, check labs
[2016-11-14 09:50] LABS: MCH 29.2 pg (25.7-33.7); MCHC 33.2 g/dl (32.0-36.0); MEAN CELL VOLUME 88.2 fl (80-96); MEAN PLT VOLUME 9.5 fl (7.5-11.1); PLATELET COUNT 239 K/MM3 (134-434); RDW 13.9 % (11.6-15.6); WHITE BLOOD COUNT 9.9 K/mm3 (4.0-10.0)
[2016-11-14 09:56] LABS: CALCIUM 8.9 mg/dL (8.5-10.1)
[2016-11-14] MEDS ORDERED: PRENATAL VITAMINS W/ FOLIC ACID TABLET (FP) PO SCH (10:00)
[2016-11-14 10:05] LABS: ALBUMIN 3.1 g/dl (3.4-5.0); ALK PHOS 78 U/L (45-117); ANION GAP 5 (8-16); BILIRUBIN,TOTAL 0.2 mg/dL (0.2-1.0); CO2 26 mmol/L (21-32); CREATININE 0.8 mg/dL (0.55-1.02); GLUCOSE,RANDOM 143 mg/dL (74-106); SGOT/AST 11 U/L (15-37); SGPT/ALT 23 U/L (12-78); TOT PROT 6.2 g/dl (6.4-8.2)
[2016-11-14] MEDS: hydrOXYzine PAMOATE 50 MG CAPSULE (FP) PO PRN ×2 (10:22→22:57)
--- NOTE | 2016-11-14 11:53 | PN ---
Psychiatric Progress Note Vital Signs: Vital Signs Period Temp Pulse Resp BP Sys/Granda Pulse Ox Last 24 Hr 96.1 F-98.6 F 79-87 18-18 113-126/63-83 Current Medications: Active Medications Generic Name Dose Route Start Last Admin Trade Name Freq PRN Reason Stop Dose Admin Acetaminophen 650 mg 11/13/16 19:38 Tylenol - PO Q4H PRN FEVER OR PAIN Al Hydroxide/Mg Hydroxide 30 ml 11/13/16 19:38 Mylanta Oral Suspension - PO Q6H PRN DYSPEPSIA Albuterol Sulfate 2 puff 11/13/16 19:41 Ventolin Hfa Inhaler - IH Q4H PRN SHORT OF BREATH/WHEEZING Chlordiazepoxide HCl 10 mg 11/16/16 23:00 Librium - PO 11/17/16 17:01 [id number] KILO Chlordiazepoxide HCl 25 mg 11/13/16 19:38 Librium - PO 11/16/16 19:37 Q4H PRN WITHDRAWAL(CONT SUBST) Chlordiazepoxide HCl 50 mg 11/13/16 23:00 11/14/16 10:20 Librium - PO 11/14/16 17:01 50 mg [id number] KILO Administration Chlordiazepoxide HCl 25 mg 11/14/16 23:00 Librium - PO 11/15/16 17:01 [id number] KILO Chlordiazepoxide HCl 15 mg 11/15/16 23:00 Librium - PO 11/16/16 17:01 [id number] KILO Diphenhydramine HCl 50 mg 11/13/16 19:38 Benadryl - PO HSMR1 PRN INSOMNIA Eucalyptus/Menthol/Phenol/Sorbitol 1 each 11/13/16 19:38 Cepastat Lozenge - MM Q4H PRN SORE THROAT Gabapentin 400 mg 11/13/16 22:00 11/14/16 06:50 Neurontin - PO Not Given TID KILO Guaifenesin 10 ml 11/13/16 19:38 Robitussin Dm - PO Q6H PRN COUGH Hydroxyzine Pamoate 50 mg 11/13/16 19:38 11/14/16 10:22 Vistaril - PO 50 mg Q4H PRN Administration AGITATION Ibuprofen 400 mg 11/13/16 19:38 Motrin - PO Q6H PRN SEVERE PAIN Loperamide HCl 4 mg 11/13/16 19:38 Imodium - PO Q6H PRN DIARRHEA Magnesium Citrate 300 ml 11/13/16 19:38 Citroma - PO Q48H PRN CONSTIPATION Magnesium Hydroxide 30 ml 11/13/16 19:38 Milk Of Magnesia - PO DAILY PRN CONSTIPATION Nicotine 21 mg 11/13/16 19:38 Nicoderm Patch - TD DAILY PRN WITHDRAWAL(CONT SUBST) Nicotine Polacrilex 4 mg 11/13/16 19:38 Nicorette Gum - BUC Q2H PRN NICOTINE REPLACEMENT RX Multivit/Folic Acid/Iron 1 tab 11/14/16 10:00 11/14/16 10:20 Vitamins (Sjr) - PO 1 tab DAILY KILO Administration Pseudoephedrine/Triprolidine 1 combo 11/13/16 19:38 Actifed - PO TID PRN NASAL CONGESTION Thiamine HCl 100 mg 11/13/16 22:00 11/13/16 21:04 Vitamin B1 - PO 100 mg HS KILO Administration
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
[2016-11-14] MEDS: THIAMINE HCL 100 MG TABLET (FP) PO SCH (22:55)
[2016-11-15] MEDS: chlordiazePOXIDE HCL 25 MG CAPSULE PO SCH (06:25)
[2016-11-15] MEDS: GABAPENTIN 400 MG CAPSULE (FP) PO SCH (06:25)
[2016-11-15 10:48] VITALS: BP 111/56; PULSE 88; TEMP 97.2
--- NOTE | 2016-11-15 11:03 | PN ---
S CIWA - CIWA Score Nausea/Vomitin Muscle Tremors: 2 Anxiety: 4-Mod. Anxious/Guarded Agitation: 2 Paroxysmal Sweats: 2 Orientation: 0-Oriented Tacttile Disturbances: 0-None Auditory Disturbances: 1-Very Mild Visual Disturbances: 1-Very Mild Sensitivity Headache: 2-Mild CIWA-Ar Total Score: 16 BHS Progress Note (SOAP) Subjective: Interrupted sleep, tremors, sweats and anxiety Objective: 11/15/16 11:03 Vital Signs - 8 hr 11/15/16 11/15/16 11/15/16 03:30 06:29 10:48 Temperature 96.3 F L 97.2 F L Pulse Rate 82 88 Respiratory 18 18 18 Rate Blood Pressure 119/50 111/56 Laboratory Last Values WBC 9.9 K/mm3 (4.0-10.0) 11/14/16 07:50 RBC 4.50 M/mm3 (3.60-5.2) 11/14/16 07:50 Hgb 13.2 GM/dL (10.7-15.3) 11/14/16 07:50 Hct 39.7 % (32.4-45.2) 11/14/16 07:50 MCV 88.2 fl (80-96) 11/14/16 07:50 MCH 29.2 pg (25.7-33.7) 11/14/16 07:50 MCHC 33.2 g/dl (32.0-36.0) 11/14/16 07:50 RDW 13.9 % (11.6-15.6) 11/14/16 07:50 Plt Count 239 K/MM3 (134-434) D 11/14/16 07:50 MPV 9.5 fl (7.5-11.1) 11/14/16 07:50 Sodium 140 mmol/L (136-145) 11/14/16 07:50 Potassium 4.2 mmol/L (3.5-5.1) 11/14/16 07:50 Chloride 109 mmol/L (98-107) H 11/14/16 07:50 Carbon Dioxide 26 mmol/L (21-32) 11/14/16 07:50 Anion Gap 5 (8-16) L 11/14/16 07:50 BUN 13 mg/dL (7-18) 11/14/16 07:50 Creatinine 0.8 mg/dL (0.55-1.02) 11/14/16 07:50 Creat Clearance w eGFR > 60 (>60) 11/14/16 07:50 Random Glucose 143 mg/dL (74-106) H D 11/14/16 07:50 Calcium 8.9 mg/dL (8.5-10.1) 11/14/16 07:50 Total Bilirubin 0.2 mg/dL (0.2-1.0) 11/14/16 07:50 AST 11 U/L (15-37) L D 11/14/16 07:50 ALT 23 U/L (12-78) 11/14/16 07:50 Alkaline Phosphatase 78 U/L (45-117) 11/14/16 07:50 Total Protein 6.2 g/dl (6.4-8.2) L 11/14/16 07:50 Albumin 3.1 g/dl (3.4-5.0) L 11/14/16 07:50 Urine Color Yellow 11/13/16 21:36 Urine Appearance Slcloudy 11/13/16 21:36 Urine pH 6.0 (5.0-8.0) 11/13/16 21:36 Ur Specific [place] 1.025 (1.005-1.025) 11/13/16 21:36 Urine Protein Negative (NEGATIVE) 11/13/16 21:36 Urine Glucose (UA) Negative (NEGATIVE) 11/13/16 21:36 Urine Ketones Trace (NEGATIVE) H 11/13/16 21:36 Urine Blood Negative (NEGATIVE) 11/13/16 21:36 Urine Nitrite Negative (NEGATIVE) 11/13/16 21:36 Urine Bilirubin Negative (NEGATIVE) 11/13/16 21:36 Urine Urobilinogen Negative mg/dL (0.2-1.0) 11/13/16 21:36 RPR Titer Nonreactive (NONREACTIVE) 11/14/16 07:50 Labs noted Assessment: 11/15/16 11:03 withdrawal sx Plan: continue detox
--- NOTE | 2016-11-15 17:37 | DS ---
[facility] Detox Discharge Summary Admission Date: 11/13/16 Discharge Date: 11/15/16 - History Present History: Alcohol Dependence, Cannabis Dependence, Cocaine Dependence Pertinent Past History: PTSD, asthma - Physical Exam Results Vital Signs: Vital Signs Temperature 97.2 F L 11/15/16 10:48 Pulse Rate 88 11/15/16 10:48 Respiratory Rate 18 11/15/16 10:48 Blood Pressure 111/56 11/15/16 10:48 O2 Sat by Pulse Oximetry (%) Pertinent Admission Physical Exam Findings: withdrawal sx Laboratory Last Values WBC 9.9 K/mm3 (4.0-10.0) 11/14/16 07:50 RBC 4.50 M/mm3 (3.60-5.2) 11/14/16 07:50 Hgb 13.2 GM/dL (10.7-15.3) 11/14/16 07:50 Hct 39.7 % (32.4-45.2) 11/14/16 07:50 MCV 88.2 fl (80-96) 11/14/16 07:50 MCH 29.2 pg (25.7-33.7) 11/14/16 07:50 MCHC 33.2 g/dl (32.0-36.0) 11/14/16 07:50 RDW 13.9 % (11.6-15.6) 11/14/16 07:50 Plt Count 239 K/MM3 (134-434) D 11/14/16 07:50 MPV 9.5 fl (7.5-11.1) 11/14/16 07:50 Sodium 140 mmol/L (136-145) 11/14/16 07:50 Potassium 4.2 mmol/L (3.5-5.1) 11/14/16 07:50 Chloride 109 mmol/L (98-107) H 11/14/16 07:50 Carbon Dioxide 26 mmol/L (21-32) 11/14/16 07:50 Anion Gap 5 (8-16) L 11/14/16 07:50 BUN 13 mg/dL (7-18) 11/14/16 07:50 Creatinine 0.8 mg/dL (0.55-1.02) 11/14/16 07:50 Creat Clearance w eGFR > 60 (>60) 11/14/16 07:50 Random Glucose 143 mg/dL (74-106) H D 11/14/16 07:50 Calcium 8.9 mg/dL (8.5-10.1) 11/14/16 07:50 Total Bilirubin 0.2 mg/dL (0.2-1.0) 11/14/16 07:50 AST 11 U/L (15-37) L D 11/14/16 07:50 ALT 23 U/L (12-78) 11/14/16 07:50 Alkaline Phosphatase 78 U/L (45-117) 11/14/16 07:50 Total Protein 6.2 g/dl (6.4-8.2) L 11/14/16 07:50 Albumin 3.1 g/dl (3.4-5.0) L 11/14/16 07:50 Urine Color Yellow 11/13/16 21:36 Urine Appearance Slcloudy 11/13/16 21:36 Urine pH 6.0 (5.0-8.0) 11/13/16 21:36 Ur Specific [place] 1.025 (1.005-1.025) 11/13/16 21:36 Urine Protein Negative (NEGATIVE) 11/13/16 21:36 Urine Glucose (UA) Negative (NEGATIVE) 11/13/16 21:36 Urine Ketones Trace (NEGATIVE) H 11/13/16 21:36 Urine Blood Negative (NEGATIVE) 11/13/16 21:36 Urine Nitrite Negative (NEGATIVE) 11/13/16 21:36 Urine Bilirubin Negative (NEGATIVE) 11/13/16 21:36 Urine Urobilinogen Negative mg/dL (0.2-1.0) 11/13/16 21:36 RPR Titer Nonreactive (NONREACTIVE) 11/14/16 07:50 labs noted - Medication Discharge Medications: Ambulatory Orders Acetaminophen [Tylenol -] 325 mg PO Q6H 11/13/16 Amoxicillin - [Amoxicillin 500mg Capsule -] 500 mg PO TID 11/13/16 Bisacodyl [Dulcolax -] 10 mg PO HS 11/13/16 Fluoxetine HCl [Prozac -] 20 mg PO DAILY 11/13/16 Hydroxyzine HCl 50 mg PO BID 11/13/16 Ibuprofen [Motrin -] 800 mg PO TID 11/13/16 Risperidone [Risperdal] 1 mg PO BID 11/13/16 - Diagnosis (1) Alcohol dependence with uncomplicated withdrawal Status: Acute (2) Asthma Status: Chronic Qualifiers: Asthma severity: mild intermittent Asthma complication type: with status asthmaticus Qualified Code(s): J45.22 - Mild intermittent asthma with status asthmaticus (3) Cannabis dependence, uncomplicated Status: Acute (4) Cocaine dependence, uncomplicated Status: Acute (5) Anxiety Status: Suspected (6) PTSD (post-traumatic stress disorder) Status: Chronic - AMA Did Patient Leave Against Medical Advice: Yes
[2016-11-15] MEDS ORDERED: chlordiazePOXIDE 5 MG CAPSULE PO SCH (23:00)
[2016-11-16] MEDS ORDERED: chlordiazePOXIDE HCL 10 MG CAPSULE PO SCH (23:00)
--- NOTE | 2016-11-17 17:04 | EKG ---
Test Reason : Blood Pressure : / mmHG Vent. Rate : 074 BPM Atrial Rate : 074 BPM P-R Int : 132 ms QRS Dur : 074 ms QT Int : 380 ms P-R-T Axes : 029 033 027 degrees QTc Int : 421 ms NORMAL SINUS RHYTHM WITH SINUS ARRHYTHMIA NORMAL ECG NO PREVIOUS ECGS AVAILABLE Confirmed by KIRK PARISI MD ([id number]) on 11/17/2016 5:04:25 PM Referred By: Eric Prince Confirmed By:KIRK PARISI MD
== END 2016-11-15 10:28 | disposition left against medical advice (07) | DRG 770 ==
LOC: YASAS 15:06 → Y6N 18:47
PROVIDERS: ADMIT Internal Medicine; ATTEND Internal Medicine
PROC: HZ2ZZZZ Detoxification Services for Substance Abuse Treatment (ICD-10-PCS; principal; 2016-11-13)
DX: F10.230 Alcohol dependence with withdrawal, uncomplicated (principal); F14.20 Cocaine dependence, uncomplicated; F12.20 Cannabis dependence, uncomplicated; F41.9 Anxiety disorder, unspecified; F43.10 Post-traumatic stress disorder, unspecified; J45.22 Mild intermittent asthma with status asthmaticus
CPT/HCPCS: 36415; 80053; 81003; 85027; 86593; 93005; 93010

== ENCOUNTER 2017-02-24 17:57 | Inpatient (IN) | payer OTHER ==
[2017-02-24 18:44] VITALS: BMI 43.1
[2017-02-24] MEDS ORDERED: MAG HYDROX/AL HYDROX/SIMETH 30 ML UNIT-DOSE CUP PO PRN (20:33)
[2017-02-24] MEDS ORDERED: MENTHOL/PHENOL 1 EACH UD MM PRN (20:33)
[2017-02-24] MEDS ORDERED: chlordiazePOXIDE HCL 25 MG CAPSULE PO PRN (20:33)
[2017-02-24] MEDS ORDERED: P-EPHED 60MG/TRIPROLIDI 2.5MG TABLET PO PRN (20:33)
[2017-02-24] MEDS ORDERED: guaiFENesin/D-METHORPHAN HB 10 ML UNIT-DOSE CUPS PO PRN (20:33)
[2017-02-24] MEDS ORDERED: MAGNESIUM HYDROX 2400MG/30ML ORAL SUSPENSION 30 ML CUP PO PRN (20:33)
[2017-02-24] MEDS ORDERED: MAGNESIUM CITRATE 300 ML BOTTLE PO PRN (20:33)
[2017-02-24] MEDS ORDERED: ACETAMINOPHEN 325 MG TABLET (FP) PO PRN (20:33)
[2017-02-24] MEDS ORDERED: LOPERAMIDE HCL 2 MG CAPSULE PO PRN (20:33)
[2017-02-24] MEDS ORDERED: ALBUTEROL SO4 18 GM HFA INHALER IH PRN (20:35)
[2017-02-24] MEDS ORDERED: ALBUTEROL SO4 0.083% IH SOL 2.5 MG/3 ML VIAL.NEB. NEB PRN (20:35)
--- NOTE | 2017-02-24 20:36 | HP ---
CIWA Score - CIWA Score Nausea/Vomitin-Mild Nausea/No Vomiting Muscle Tremors: 4-Moderate,w/Arms Extend Anxiety: 4-Mod. Anxious/Guarded Agitation: 4-Moderately Restless Paroxysmal Sweats: 1-Minimal Palms Moist Orientation: 1-Uncertain about Date Tacttile Disturbances: 1-Very Mild Itch/Numbness Auditory Disturbances: 0-None Visual Disturbances: 0-None Headache: 1-Very Mild CIWA-Ar Total Score: 17 Admission ROS S - HPI Chief Complaint: withdrawal sx Allergies/Adverse Reactions: Allergies Allergy/AdvReac Type Severity Reaction Status Date / Time diphenhydramine HCl Allergy Hives Verified 02/24/17 19:28 [From Benadryl] History of Present Illness: 31 years old female with long history of alcohol nicotine dependence has asthma and schizoaffective disorder is admitted to detox Exam Limitations: No Limitations - Ebola screening Have you traveled outside of the country in the last 21 days: No Have you had contact with anyone from an Ebola affected area: No Have you been sick,other than usual withdrawal symptoms: No Do you have a fever: No - Review of Systems Constitutional: Changes in sleep, Weight Stable EENT: reports: No Symptoms Reported Respiratory: reports: SOB with Exertion Cardiac: reports: No Symptoms Reported GI: reports: Diarrhea, Nausea, Poor Fluid Intake, Indigestion, Abdominal cramping : reports: No Symptoms Reported Musculoskeletal: reports: Back Pain (3 years) Integumentary: reports: No Symptoms Reported Neuro: reports: Tremors Endocrine: reports: No Symptoms Reported Hematology: reports: No Symptoms Reported Psychiatric: reports: Judgement Intact, Anxious, Depressed Other Systems: Reviewed and Negative Patient History - Patient Medical History Hx Anemia: No Hx Asthma: Yes (NO MED) Hx Chronic Obstructive Pulmonary Disease (COPD): No Hx Cancer: No Hx Cardiac Disorders: No Hx Congestive Heart Failure: No Hx Hypertension: No Hx Hypercholesterolemia: No Hx Pacemaker: No HX Cerebrovascular Accident: No Hx Seizures: No Hx Dementia: No Hx Diabetes: No Hx Gastrointestinal Disorders: No Hx Liver Disease: No Hx Genitourinary Disorders: No Hx Sexually Transmitted Disorders: No Hx Renal Disease (ESRD): No Hx Thyroid Disease: No Hx Human Immunodeficiency Virus (HIV): No (LAST 10/15 NEGATIVE) Hx Hepatitis C: No Hx Depression: No (hospitalized in december 2015 [facility] [place]) Hx Suicide Attempt: Yes (26 years OLD OVERDOSE) Hx Bipolar Disorder: No Hx Schizophrenia: Yes - Patient Surgical History Past Surgical History: No Hx Neurologic Surgery: No Hx Cataract Extraction: No Hx Cardiac Surgery: No Hx Lung Surgery: No Hx Breast Surgery: No Hx Breast Biopsy: No Hx Abdominal Surgery: No Hx Appendectomy: No Hx Cholecystectomy: No Hx Genitourinary Surgery: No Hx Section: No Hx Orthopedic Surgery: No Hx Hysterectomy: No - PPD History Previous Implant?: Yes Documented Results: Negative w/proof Implanted On Prior [facility] Admission?: Yes Date: 03/05/16 Results: 0 PPD to be Administered?: No - Reproductive History Patient is a Female of Child Bearing Age (11 -55 yrs old): Yes Last Menstrual Period: 02/22/17 Patient : No - Smoking Cessation Smoking history: Current every day smoker Have you smoked in the past 12 months: Yes Aproximately how many cigarettes per day: 20 Cigars Per Day: 0 Hx Chewing Tobacco Use: No Initiated information on smoking cessation: Yes 'Breaking Loose' booklet given: 02/24/17 - Substance & Tx. History Hx Alcohol Use: Yes Hx Substance Use: Yes Substance Use Type: Alcohol, Cocaine Hx Substance Use Treatment: Yes (10/2016) - Substances Abused Alcohol Route: Oral Frequency: Daily Amount used: BEER- 10BTLS DAILY/ VODKA 4PTS DAILY Age of first use: 14 Date of Last Use: 02/24/17 Crack Route: Smoking Frequency: Daily Amount used: 10BAGS Age of first use: 21 Date of Last Use: 02/22/17 Marijuana/Hashish Route: Smoking Frequency: 1-3 times last 30 days Amount used: $10 Age of first use: 14 Date of Last Use: 02/10/17 Family Disease History - Family Disease History Family Disease History: Diabetes: Grandparent (), Father (hx etoh), Mother, Heart Disease: Mother, [place]: Grandparent Admission Physical Exam BHS - Vital Signs Vital Signs: Vital Signs - 24 hr 02/24/17 18:42 Temperature 96 F L Pulse Rate 92 H Respiratory 16 Rate Blood Pressure 99/48 - Physical General Appearance: Yes: Appropriately Dressed, Mild Distress, Obese, Tremorous , Irritable, Sweating, Anxious HEENTM: Yes: Hearing grossly Normal, Normal ENT Inspection, Normocephalic, Normal Voice Respiratory: Yes: Chest Non-Tender, Lungs Clear, Normal Breath Sounds, No Respiratory Distress, No Accessory Muscle Use Neck: Yes: Supple, Trachea in good position Breast: Yes: Breasts Symetrical Cardiology: Yes: Regular Rhythm, S1, S2, Tachycardia Abdominal: Yes: Non Tender, Soft, Decreased BS Genitourinary: Yes: Within Normal Limits Back: Yes: Normal Inspection Musculoskeletal: Yes: full range of Motion, Gait Steady, Back pain, Muscle Pain Extremities: Yes: Normal Inspection, Normal Range of Motion, Non-Tender, Tremors Neurological: Yes: Alert, Motor Strength 5/5, Normal Response, Depressed Affect Integumentary: Yes: Warm Lymphatic: Yes: Within Normal Limits - Diagnostic (1) GERD (gastroesophageal reflux disease) Current Visit: Yes Status: Chronic Qualifiers: Esophagitis presence: without esophagitis Qualified Code(s): K21.9 - Gastro -esophageal reflux disease without esophagitis (2) Alcohol dependence with uncomplicated withdrawal Current Visit: Yes Status: Acute (3) Nicotine dependence Current Visit: Yes Status: Acute Qualifiers: Nicotine product type: cigarettes Substance use status: in withdrawal Qualified Code(s): F17.213 - Nicotine dependence, cigarettes, with withdrawal (4) Asthma Current Visit: Yes Status: Chronic Qualifiers: Asthma severity: mild Asthma complication type: with status asthmaticus Cleared for Admission [facility] - Detox or Rehab [facility] Level of Care: Medically Managed Detox Regimen/Protocol: Librium [facility] Breath Alcohol Content Breath Alcohol Content: 0 Urine Pregancy Test - Result Urine Test Results: Negative- NO Line Present Urine Drug Screen - Results Drug Screen Negative: No Urine Drug Screen Results: KOSTA-Cocaine
[2017-02-24] MEDS: THIAMINE HCL 100 MG TABLET (FP) PO SCH (21:41)
[2017-02-24] MEDS: RANITIDINE HCL 150 MG TABLET (FP) PO SCH (21:41)
[2017-02-24] MEDS: chlordiazePOXIDE HCL 25 MG CAPSULE PO SCH (22:03)
[2017-02-24 23:21] LABS: URINE APPEARANCE CLOUDY; URINE BILIRUBIN NEGATIVE (NEGATIVE); URINE BLOOD NEGATIVE (NEGATIVE); URINE COLOR DKYELLOW; URINE GLUCOSE (UA) NEGATIVE (NEGATIVE); URINE KETONE NEGATIVE (NEGATIVE); URINE LEUK ESTERASE NEGATIVE (NEGATIVE); URINE NITRITE NEGATIVE (NEGATIVE); URINE PROTEIN NEGATIVE (NEGATIVE)
[2017-02-25] MEDS: chlordiazePOXIDE HCL 25 MG CAPSULE PO SCH ×4 (07:24→22:48)
--- NOTE | 2017-02-25 07:48 | CONSULT ---
[facility] Psychiatric Consult - Data Date of interview: 02/25/17 Admission source: [facility] Identifying data: This is 31 years old obese female with history of Schizoaffective disorder, history of psychiatric hospitalizations, intoxicated with: Alcohol, Cocaine,, Cannabis and Nicotine Substance Abuse History: - Smoking Cessation. Smoking history: Current every day smoker. Have you smoked in the past 12 months: Yes. Aproximately how many cigarettes per day: 20. Cigars Per Day: 0. Hx Chewing Tobacco Use: No. Initiated information on smoking cessation: Yes. 'Breaking Loose' booklet given : 02/24/17. - Substance & Tx. History. Hx Alcohol Use: Yes. Hx Substance Use : Yes. Substance Use Type: Alcohol, Cocaine. Hx Substance Use Treatment: Yes ( 10/2016). - Substances Abused. Alcohol. Route: Oral. Frequency: Daily. Amount used: BEER- 10BTLS DAILY/ VODKA 4PTS DAILY. Age of first use: 14. Date of Last Use: 02/24/17. Crack. Route: Smoking. Frequency: Daily. Amount used: 10BAGS. Age of first use: 21. Date of Last Use: 02/22/17. Marijuana/ Hashish. Route: Smoking. Frequency: 1-3 times last 30 days. Amount used: $ 10. Age of first use: 14. Date of Last Use: 02/10/17 Medical History: GERD, Asthma, Obesity Psychiatric History: Patient reports to carryn Schizoaffective disorder with most recent psychaiotric admission at [facility] on 2105 for safety, denies suicdial history, reports currently taking: Seroquel 200mg po qhs. Risperdal 1mg po bid. Vistaril 50mg po qhs. Prozoac 20mg poqd Physical/Sexual Abuse/Trauma History: Denies Additional Comment: Seroquel 200mg po qhs. Risperdal 1mg po bid. Vistaril 50mg po qhs. Prozoac 20mg poqd Mental Status Exam - Mental Status Exam Alert and Oriented to: Person Cognitive Function: Fair Patient Appearance: Unkempt Mood: Sad Affect: Flat Patient Behavior: Cooperative Speech Pattern: Delayed Voice Loudness: Mildly Soft/Quiet Thought Process: Goal Oriented Thought Disorder: Being Controlled Hallucinations: Denies Suicidal Ideation: Denies Homicidal Ideation: Denies Insight/Judgement: Fair Sleep: Difficulty falling asleep Appetite: Weight gain Muscle strength/Tone: Mild Hypotonicity Gait/Station: Shuffling Additional Comments: Seroquel 200mg po qhs. Risperdal 1mg po bid. Vistaril 50mg po qhs. Prozoac 20mg poqd Psychiatric Findings - Problem List ([place] 1, 2,3) (1) Schizoaffective disorder Current Visit: Yes Status: Acute (2) Alcohol dependence with uncomplicated withdrawal Current Visit: Yes Status: Acute (3) Nicotine dependence Current Visit: Yes Status: Acute Qualifiers: Nicotine product type: cigarettes Substance use status: in withdrawal Qualified Code(s): F17.213 - Nicotine dependence, cigarettes, with withdrawal (4) Cannabis dependence, uncomplicated Current Visit: No Status: Acute (5) Cocaine dependence, uncomplicated Current Visit: No Status: Acute (6) Cocaine dependence Current Visit: No Status: Chronic Qualifiers: Substance use status: uncomplicated Qualified Code(s): F14.20 - Cocaine dependence, uncomplicated (7) PTSD (post-traumatic stress disorder) Current Visit: No Status: Chronic (8) Anxiety Current Visit: No Status: Suspected - Initial Treatment Plan Initial Treatment Plan: Seroquel 200mg po qhs. Risperdal 1mg po bid. Vistaril 50mg po qhs. Prozoac 20mg poqd
[2017-02-25 10:16] LABS: MCH 28.1 pg (25.7-33.7); MCHC 31.9 g/dl (32.0-36.0); MEAN PLT VOLUME 9.3 fl (7.5-11.1); PLATELET COUNT 338 K/MM3 (134-434); RDW 14.7 % (11.6-15.6); WHITE BLOOD COUNT 8.9 K/mm3 (4.0-10.0)
[2017-02-25 10:28] LABS: ALK PHOS 73 U/L (45-117); ANION GAP 4 (8-16); BILIRUBIN,TOTAL 0.3 mg/dL (0.2-1.0); CALCIUM 8.9 mg/dL (8.5-10.1); CO2 28 mmol/L (21-32); CREATININE 0.8 mg/dL (0.55-1.02); GLUCOSE,RANDOM 110 mg/dL (74-106); SGOT/AST 10 U/L (15-37); SGPT/ALT 22 U/L (12-78); TOT PROT 6.2 g/dl (6.4-8.2)
--- NOTE | 2017-02-25 10:48 | PN ---
[facility] CIWA - CIWA Score Nausea/Vomitin Muscle Tremors: 2 Anxiety: 3 Agitation: 3 Paroxysmal Sweats: 3 Orientation: 0-Oriented Tacttile Disturbances: 1-Very Mild Itch/Numbness Auditory Disturbances: 0-None Visual Disturbances: 0-None Headache: 0-None Present CIWA-Ar Total Score: 15 S Progress Note (SOAP) Subjective: interrupted sleep, sweats, tired, diarrhea, Objective: 02/25/17 10:46 Vital Signs Temperature 98.0 F 02/25/17 10:00 Pulse Rate 66 02/25/17 10:00 Respiratory Rate 18 02/25/17 10:00 Blood Pressure 134/67 02/25/17 10:00 O2 Sat by Pulse Oximetry (%) Laboratory Tests 02/24/17 02/25/17 02/25/17 21:24 07:54 07:54 WBC 8.9 RBC 4.81 Hgb 13.5 Hct 42.3 MCV 88.0 MCH 28.1 MCHC 31.9 L RDW 14.7 Plt Count 338 D MPV 9.3 Sodium 141 Potassium 4.3 Chloride 109 H Carbon Dioxide 28 Anion Gap 4 L BUN 11 Creatinine 0.8 Creat Clearance w eGFR > 60 Random Glucose 110 H D Calcium 8.9 Total Bilirubin 0.3 D AST 10 L ALT 22 Alkaline Phosphatase 73 Total Protein 6.2 L Albumin 3.0 L Urine Color Dkyellow Urine Appearance Cloudy Urine pH 5.0 Ur Specific [place] 1.028 Urine Protein Negative Urine Glucose (UA) Negative Urine Ketones Negative Urine Blood Negative Urine Nitrite Negative Urine Bilirubin Negative Urine Urobilinogen 2.0 H pt aox3 in nad, irritable , lying in bed Assessment: 02/25/17 10:47 withdrawal sx's diarrhea Plan: cont. detox increase fluids imodium prn
[2017-02-25] MEDS: RANITIDINE HCL 150 MG TABLET (FP) PO SCH ×2 (11:53→22:48)
[2017-02-25] MEDS: risperiDONE 1 MG TABLET (FP) PO SCH ×2 (11:53→22:48)
[2017-02-25] MEDS: PRENATAL VITAMINS W/ FOLIC ACID TABLET (FP) PO SCH (11:54)
[2017-02-25] MEDS: FLUoxetine HCL 20 MG CAPSULE (FP) PO SCH (11:54)
[2017-02-25] MEDS: NICOTINE 21 MG/24 HOURS TOPICAL PATCH TD SCH (11:54)
--- NOTE | 2017-02-25 13:04 | EKG ---
Test Reason : Blood Pressure : / mmHG Vent. Rate : 069 BPM Atrial Rate : 069 BPM P-R Int : 124 ms QRS Dur : 078 ms QT Int : 396 ms P-R-T Axes : 044 030 021 degrees QTc Int : 424 ms NORMAL SINUS RHYTHM NORMAL ECG WHEN COMPARED WITH ECG OF 13-NOV-2016 20:12, NO SIGNIFICANT CHANGE WAS FOUND Confirmed by YOMI SAMSON MD ([id number]) on 02/25/2017 1:04:21 PM Referred By: Confirmed By:YOMI SAMSON MD
[2017-02-25 18:18] LABS: URINE LEUK ESTERASE Negative (NEGATIVE)
[2017-02-25] MEDS: NICOTINE POLACRILEX 4 MG GUM BC PRN (19:47)
[2017-02-25] MEDS: QUEtiapine FUMARATE 200 MG TABLET PO SCH (22:48)
[2017-02-25] MEDS: THIAMINE HCL 100 MG TABLET (FP) PO SCH (22:48)
[2017-02-25] MEDS: hydrOXYzine HCL 25 MG TABLET (FP) PO SCH (23:40)
[2017-02-26] MEDS: chlordiazePOXIDE HCL 25 MG CAPSULE PO SCH ×2 (05:59→11:12)
[2017-02-26] MEDS: RANITIDINE HCL 150 MG TABLET (FP) PO SCH ×2 (11:10→22:52)
[2017-02-26] MEDS: FLUoxetine HCL 20 MG CAPSULE (FP) PO SCH (11:10)
[2017-02-26] MEDS: NICOTINE POLACRILEX 4 MG GUM BC PRN (11:10)
[2017-02-26] MEDS: PRENATAL VITAMINS W/ FOLIC ACID TABLET (FP) PO SCH (11:10)
[2017-02-26] MEDS: risperiDONE 1 MG TABLET (FP) PO SCH ×2 (11:10→22:52)
[2017-02-26] MEDS: NICOTINE 21 MG/24 HOURS TOPICAL PATCH TD SCH (11:12)
--- NOTE | 2017-02-26 16:53 | PN ---
[facility] CIWA - CIWA Score Nausea/Vomitin Muscle Tremors: 2 Anxiety: 4-Mod. Anxious/Guarded Agitation: 4-Moderately Restless Paroxysmal Sweats: 3 Orientation: 0-Oriented Tacttile Disturbances: 1-Very Mild Itch/Numbness Auditory Disturbances: 0-None Visual Disturbances: 0-None Headache: 0-None Present CIWA-Ar Total Score: 16 BHS Progress Note (SOAP) Subjective: Diarrhea, sweating, nausea, interrupted sleep; c/o white, itchy, fishy vaginal discharge and agreed to use vaginal cream for yeast infection. Patient requesting her detox protocol to be adjusted so that she can leave on Thursday. As per patient, she is more of a crack head and not an alcoholic. As per patient , she wants to leave mid day on Thursday because she is trying to get to a rehab center for admission and has to be there before 5pm. She refused rehab here at [facility]. Objective: 02/26/17 16:50 Last Vital Signs Temp Pulse Resp BP Pulse Ox 97.5 F L 114 H 18 134/83 02/26/17 14:00 02/26/17 14:00 02/26/17 14:00 02/26/17 14:00 Laboratory Tests 02/24/17 02/25/17 02/25/17 21:24 07:54 07:54 WBC 8.9 RBC 4.81 Hgb 13.5 Hct 42.3 MCV 88.0 MCH 28.1 MCHC 31.9 L RDW 14.7 Plt Count 338 D MPV 9.3 Sodium 141 Potassium 4.3 Chloride 109 H Carbon Dioxide 28 Anion Gap 4 L BUN 11 Creatinine 0.8 Creat Clearance w eGFR > 60 Random Glucose 110 H D Calcium 8.9 Total Bilirubin 0.3 D AST 10 L ALT 22 Alkaline Phosphatase 73 Total Protein 6.2 L Albumin 3.0 L Urine Color Dkyellow Urine Appearance Cloudy Urine pH 5.0 Ur Specific [place] 1.028 Urine Protein Negative Urine Glucose (UA) Negative Urine Ketones Negative Urine Blood Negative Urine Nitrite Negative Urine Bilirubin Negative Urine Urobilinogen 2.0 H Ur Leukocyte Esterase Negative RPR Titer 02/25/17 07:54 WBC RBC Hgb Hct MCV MCH MCHC RDW Plt Count MPV Sodium Potassium Chloride Carbon Dioxide Anion Gap BUN Creatinine Creat Clearance w eGFR Random Glucose Calcium Total Bilirubin AST ALT Alkaline Phosphatase Total Protein Albumin Urine Color Urine Appearance Urine pH Ur Specific [place] Urine Protein Urine Glucose (UA) Urine Ketones Urine Blood Urine Nitrite Urine Bilirubin Urine Urobilinogen Ur Leukocyte Esterase RPR Titer Nonreactive labs noted Assessment: 02/26/17 16:51 Withdrawal symptoms c/o vaginal candidiasis Plan: Continue detox Encouraged to drink lots of water Patient can be discharged on Thursday at 1pm if stable at time of discharge Vaginal candidiasis: clotrimazole cream qhs x 3 nights
[2017-02-26] MEDS: chlordiazePOXIDE 5 MG CAPSULE PO SCH ×2 (18:47→22:52)
[2017-02-26] MEDS ORDERED: CLOTRIMAZOLE 1% VAGINAL CREAM WITH APPLICATOR 45 GM TUBE VG SCH (22:00)
[2017-02-26] MEDS: THIAMINE HCL 100 MG TABLET (FP) PO SCH (22:51)
[2017-02-26] MEDS: QUEtiapine FUMARATE 200 MG TABLET PO SCH (22:52)
[2017-02-26] MEDS: hydrOXYzine HCL 25 MG TABLET (FP) PO SCH (22:52)
[2017-02-26] MEDS ORDERED: chlordiazePOXIDE 5 MG CAPSULE PO SCH (23:00)
[2017-02-27] MEDS: chlordiazePOXIDE 5 MG CAPSULE PO SCH (06:09)
[2017-02-27 06:34] VITALS: BP 101/50; PULSE 110; TEMP 97.7
[2017-02-27] MEDS ORDERED: chlordiazePOXIDE HCL 10 MG CAPSULE PO SCH ×2 (11:00→23:00)
[2017-02-27] MEDS: PRENATAL VITAMINS W/ FOLIC ACID TABLET (FP) PO SCH (12:20)
[2017-02-27] MEDS: RANITIDINE HCL 150 MG TABLET (FP) PO SCH (12:20)
[2017-02-27] MEDS: FLUoxetine HCL 20 MG CAPSULE (FP) PO SCH (12:21)
[2017-02-27] MEDS: risperiDONE 1 MG TABLET (FP) PO SCH (12:21)
[2017-02-27] MEDS: NICOTINE 21 MG/24 HOURS TOPICAL PATCH TD SCH (12:22)
--- NOTE | 2017-02-27 17:13 | DS ---
[facility] Detox Discharge Summary Admission Date: 02/24/17 Discharge Date: 02/27/17 - History Present History: Alcohol Dependence, Cannabis Dependence, Cocaine Dependence Pertinent Past History: Asthma - Physical Exam Results Vital Signs: Vital Signs Temperature 97.7 F 02/27/17 06:33 Pulse Rate 110 H 02/27/17 06:33 Respiratory Rate 20 02/27/17 06:33 Blood Pressure 101/50 02/27/17 06:33 O2 Sat by Pulse Oximetry (%) - Treatment Hospital Course: Detox Protocol Followed, Detoxed Safely, Responded well, Discharged Condition Good - Medication Discharge Medications: Ambulatory Orders Quetiapine Fumarate [Seroquel -] 200 mg PO HS 02/24/17 Fluoxetine HCl [Prozac -] 20 mg PO DAILY #30 capsule 02/25/17 Hydroxyzine HCl 50 mg PO HS #30 solution 02/25/17 Quetiapine Fumarate [Seroquel -] 200 mg PO HS #30 tablet 02/25/17 Risperidone [Risperdal -] 1 mg PO BID #60 tablet 02/25/17 - Diagnosis (1) Vaginal candidiasis Status: Acute (2) Alcohol dependence with uncomplicated withdrawal Status: Acute (3) Asthma Status: Chronic Qualifiers: Asthma severity: mild Asthma complication type: with status asthmaticus (4) Nicotine dependence Status: Chronic Qualifiers: Nicotine product type: cigarettes Substance use status: in withdrawal Qualified Code(s): F17.213 - Nicotine dependence, cigarettes, with withdrawal (5) Cannabis dependence, uncomplicated Status: Chronic (6) Cocaine dependence Status: Chronic Qualifiers: Substance use status: uncomplicated Qualified Code(s): F14.20 - Cocaine dependence, uncomplicated - AMA Did Patient Leave Against Medical Advice: No (F/U with PCP within 1 week or sooner if warranted)
== END 2017-02-27 12:30 | disposition home or self-care (01) | DRG 774 ==
LOC: YASAS 17:57 → Y6N 20:08
PROVIDERS: ADMIT Internal Medicine; ATTEND Internal Medicine
PROC: HZ2ZZZZ Detoxification Services for Substance Abuse Treatment (ICD-10-PCS; principal; 2017-02-24)
DX: F10.230 Alcohol dependence with withdrawal, uncomplicated (principal); F14.20 Cocaine dependence, uncomplicated; F12.20 Cannabis dependence, uncomplicated; F17.213 Nicotine dependence, cigarettes, with withdrawal; F25.9 Schizoaffective disorder, unspecified; F43.10 Post-traumatic stress disorder, unspecified; F41.9 Anxiety disorder, unspecified; J45.902 Unspecified asthma with status asthmaticus; B37.3 Candidiasis of vulva and vagina; R19.7 Diarrhea, unspecified; E66.9 Obesity, unspecified; R00.0 Tachycardia, unspecified; Z68.41 Body mass index [BMI] 40.0-44.9, adult; Z91.5 Personal history of self-harm
CPT/HCPCS: 36415; 80053; 81003; 85027; 86593; 93005; 93010; 94640; J2794

== ENCOUNTER 2022-08-01 10:03 | Inpatient (IN) | payer OTHER ==
[2022-08-01 10:28] VITALS: BMI 49.1
[2022-08-01] MEDS ORDERED: NICOTINE POLACRILEX 4 MG GUM BUC ONE (11:09)
[2022-08-01] MEDS: NICOTINE POLACRILEX 4 MG GUM BUC PRN ×3 (11:10→21:34)
[2022-08-01] MEDS ORDERED: COLLOIDAL OATMEAL 1 BAR EACH TP PRN (11:32)
[2022-08-01] MEDS ORDERED: IBUPROFEN 400 MG TABLET (FP) PO PRN (11:32)
[2022-08-01] MEDS ORDERED: BENZONATATE 200 MG CAPSULE PO PRN (11:32)
[2022-08-01] MEDS ORDERED: BENZOCAINE/MENTHOL (CHLORASEPTIC ) LOZENGE MM PRN (11:32)
[2022-08-01] MEDS ORDERED: guaiFENesin 600 MG TABLET.ER (FP) PO PRN (11:32)
[2022-08-01] MEDS ORDERED: NALOXONE HCL (KLOXXADO) 8 MG SPRAY NS PRN (11:32)
[2022-08-01] MEDS ORDERED: LOPERAMIDE HCL 2 MG CAPSULE PO PRN (11:32)
[2022-08-01] MEDS ORDERED: MAG HYDROX/AL HYDROX/SIMETH 30 ML UNIT-DOSE CUP PO PRN (11:32)
[2022-08-01] MEDS ORDERED: POLYETHYLENE GLYCOL (HEALTHYLAX) 3350 17 GM PACKET PO PRN (11:32)
[2022-08-01] MEDS ORDERED: NALOXONE HCL 0.4 MG/ML VIAL IM PRN (11:32)
[2022-08-01] MEDS ORDERED: IBUPROFEN 600 MG TABLET (FP) PO PRN (11:32)
[2022-08-01] MEDS ORDERED: MAGNESIUM HYDROX 2400MG/30ML ORAL SUSPENSION 30 ML CUP PO PRN (11:32)
[2022-08-01] MEDS ORDERED: AMMONIUM LACTATE 12% LOTION 225 GM BOTTLE TP PRN (11:32)
[2022-08-01] MEDS ORDERED: IBUPROFEN 600 MG TABLET (FP) PO ONE (13:24)
[2022-08-01] MEDS ORDERED: NICOTINE POLACRILEX 2 MG GUM ONE (13:26)
[2022-08-01 13:58] LABS: HEMATOCRIT 38.5 % (32.4-45.2); HEMOGLOBIN 13.2 GM/dL (10.7-15.3); MCH 28.5 pg (25.7-33.7); MCHC 34.2 g/dl (32.0-36.0); MEAN CELL VOLUME 83.3 fl (80-96); MEAN PLT VOLUME 9.3 fl (7.5-11.1); PLATELET COUNT 327 10^3/uL (134-434); RBC 4.62 M/mm3 (3.60-5.2); RDW 14.4 % (11.6-15.6); WHITE BLOOD COUNT 7.5 K/mm3 (4.0-10.0)
[2022-08-01] MEDS ORDERED: TUBERCULIN PPD 5 TU/0.1ML VIAL ID ONE (14:04)
[2022-08-01 14:09] VITALS: RESP 18
[2022-08-01 14:33] LABS: POTASSIUM 4.5 mmol/L (3.5-5.1)
[2022-08-01 14:35] LABS: CALCIUM 9.4 mg/dL (8.5-10.1)
[2022-08-01 14:36] LABS: ALBUMIN 3.3 g/dl (3.4-5.0); BLOOD UREA NITROGEN 8.5 mg/dL (7-18)
[2022-08-01 14:39] LABS: CREATININE 0.7 mg/dL (0.55-1.3)
[2022-08-01 14:40] LABS: BILIRUBIN,TOTAL 0.1 mg/dL (0.2-1); TOT PROT 6.8 g/dl (6.4-8.2)
[2022-08-01 15:13] LABS: SYPHILIS W/ RPR CONF NON-REACTIVE (NONREACTIVE)
[2022-08-01] MEDS: ACETAMINOPHEN 325 MG TABLET (FP) PO PRN ×2 (16:55→18:37)
[2022-08-01] MEDS: PRAZOSIN HCL 5 MG CAPSULE PO SCH (21:31)
[2022-08-01] MEDS: ARIPiprazole 10 MG TABLET PO SCH (21:31)
[2022-08-01] MEDS: busPIRone HCL 10 MG TABLET (FP) PO SCH (21:31)
[2022-08-01] MEDS: SUVOREXANT 10 MG TABLET PO PRN (21:32)
[2022-08-01] MEDS ORDERED: ARIPiprazole 20 MG TABLET PO SCH (22:00)
[2022-08-01] MEDS ORDERED: MELATONIN 5 MG TABLETS PO SCH (22:00)
[2022-08-01 22:33] LABS: URINE APPEARANCE TURBID; URINE BILIRUBIN NEGATIVE (NEGATIVE); URINE COLOR YELLOW; URINE GLUCOSE (UA) NEGATIVE (NEGATIVE); URINE KETONE NEGATIVE (NEGATIVE); URINE LEUK ESTERASE NEGATIVE (NEGATIVE); URINE NITRITE NEGATIVE (NEGATIVE); URINE PROTEIN NEGATIVE (NEGATIVE); URINE UROBILINOGEN 0.2 mg/dL (0.2-1.0)
[2022-08-01] MEDS: THIAMINE HCL 100 MG TABLET (FP) PO SCH (22:34)
[2022-08-02 07:20] VITALS: PULSE 90
[2022-08-02] MEDS: ACETAMINOPHEN 325 MG TABLET (FP) PO PRN (08:59)
[2022-08-02] MEDS: NICOTINE POLACRILEX 4 MG GUM BUC PRN ×5 (09:01→19:44)
[2022-08-02] MEDS ORDERED: ARIPiprazole 20 MG TABLET PO SCH (10:00)
[2022-08-02] MEDS ORDERED: busPIRone HCL 10 MG TABLET (FP) PO SCH (10:00)
[2022-08-02] MEDS: PRENATAL VITAMINS W/ FOLIC ACID TABLET (FP) PO SCH (11:11)
[2022-08-02 11:51] LABS: HIV INTERPRETATION NEGATIVE (NEGATIVE)
[2022-08-02] MEDS: IBUPROFEN 400 MG TABLET (FP) PO PRN ×2 (13:44→21:20)
[2022-08-02] MEDS: CHLORHEXIDINE GLUCONATE 0.12% 15ML CUP MM SCH ×2 (13:45→23:45)
[2022-08-02] MEDS: busPIRone HCL 10 MG TABLET (FP) PO SCH (21:20)
[2022-08-02] MEDS: ARIPiprazole 10 MG TABLET PO SCH (21:20)
[2022-08-02] MEDS: THIAMINE HCL 100 MG TABLET (FP) PO SCH (21:20)
[2022-08-02] MEDS: PRAZOSIN HCL 5 MG CAPSULE PO SCH (21:24)
[2022-08-02] MEDS: SUVOREXANT 10 MG TABLET PO PRN (21:25)
[2022-08-03 07:13] VITALS: BP 107/69; TEMP 97.1
[2022-08-03] MEDS: IBUPROFEN 400 MG TABLET (FP) PO PRN ×2 (07:51→16:42)
[2022-08-03] MEDS: NICOTINE POLACRILEX 4 MG GUM BUC PRN ×4 (07:52→16:40)
[2022-08-03] MEDS: CHLORHEXIDINE GLUCONATE 0.12% 15ML CUP MM SCH (09:32)
[2022-08-03] MEDS: PRENATAL VITAMINS W/ FOLIC ACID TABLET (FP) PO SCH (09:36)
[2022-08-03] MEDS: ACETAMINOPHEN 325 MG TABLET (FP) PO PRN (12:20)
== END 2022-08-03 18:48 | disposition left against medical advice (07) | DRG 770 ==
LOC: YASAS 10:03 → Y5N 13:06
PROVIDERS: ADMIT Allergy & Immunology; ATTEND Psychiatry & Neurology Pain Medicine
PROC: HZ42ZZZ Group Counseling for Substance Abuse Treatment, Cognitive-Behavioral (ICD-10-PCS; principal; 2022-08-01)
DX: F10.20 Alcohol dependence, uncomplicated (principal); F14.20 Cocaine dependence, uncomplicated; F17.210 Nicotine dependence, cigarettes, uncomplicated; F19.282 Other psychoactive substance dependence with psychoactive substance-induced sleep disorder; F31.9 Bipolar disorder, unspecified; F25.9 Schizoaffective disorder, unspecified; K08.89 Other specified disorders of teeth and supporting structures; Z86.59 Personal history of other mental and behavioral disorders
CPT/HCPCS: 36415; 80053; 81003; 81025; 85027; 86780; 86803; 87389; 87635; 87811